=== PATIENT | female | born 1995 | race Hispanic/Latino ===

== ENCOUNTER 2020-02-26 11:55 | Day surgery (SDC) | payer OTHER ==
--- NOTE | 2020-02-26 11:44 | Short Stay Summary ---
Short Stay Documentation Date of service: 02/26/20 Narrative H&P: Pt is a 25 year old female who presents for elective sterilization - History H&P: obtained from office Past Medical History: No medical history Past Surgical History: bowel surgery (as an infant) Social history: - Allergies and Medications Current Medications: Allergies No Known Allergies Allergy (Unverified 02/19/20 09:44) Home Medications Medication Instructions Recorded Confirmed Last Taken Type No Known Home Medications [No 02/19/20 02/19/20 Unknown History Reported Home Medications] Active Medications Acetaminophen (Tylenol) 1,000 mg PO PREOP APARNA Stop: 02/26/20 23:59 Gabapentin (Gabapentin) 600 mg PO PREOP NR Stop: 02/26/20 23:59 Lactated Ringer's (Lactated Ringers) 1,000 mls @ 100 mls/hr IV DIRECT APARNA Stop: 02/26/20 23:59 Midazolam HCl (Versed) 2 mg IV PREOP NR Stop: 02/26/20 23:59 - Physical exam General appearance: no acute distress HEENT: Atraumatic Lungs: Clear to auscultation, Normal air movement Breasts: deferred Heart: Regular rate, Normal S1, Normal S2 Gastrointestinal: normal, normoactive bowel sounds, other (large transverse scar in upper quadrant) Female Genitourinary: normal Extremities: no ischemia - Brief post op/procedure progress note Date of procedure: 02/26/20 Pre-op diagnosis: Undesired fertility Post-op diagnosis: same Procedure: Laparoscopic tubal ligation of the right side, lysis of adhesions Anesthesia: GETA Findings: Extensive adhesions of bowel to all existing structures. In addition, uterus and left tube were completely covered in coating of peritioneum. Left fibria could not be identified. Surgeon: FATIMAH PENNY Estimated blood loss: minimal Pathology: none Condition: stable - Hospital course Hospital course: Good - Disposition Condition at discharge: Stable Disposition: [id number] TO HOME OR SELFCARE Short Stay Discharge Plan Activity: advance as tolerated Weight Bearing Status: Weight Bear as Tolerated Diet: regular Wound: keep clean and dry Follow up with: FATIMAH PENNY MD [Staff Physician] - 14 Days Prescriptions: Ibuprofen [Motrin] 800 mg PO Q8HR PRN #40 tablet PRN Reason: Pain, Mild (1-3) Oxycodone HCl/Acetaminophen [Percocet 7.5/325 mg] 1 each PO Q6HR PRN #20 tablet PRN Reason: Pain
[~2020-02-26 11:55] MED LIST: ACETAMINOPHEN 500 MG TAB PO SCH; GABAPENTIN 300 MG CAP PO NR; LACTATED RINGERS 1,000 ML IV SCH; MIDAZOLAM 2 MG/2 ML INJ IV NR
[2020-02-26] MEDS ORDERED: ceFAZolin/Water 2 GM/20 ML 2 GM/20 ML SYRINGE IV NR (12:00)
[2020-02-26] MEDS ORDERED: BUPIVACAINE/PF (0.25%) 2.5 MG/ML 30 ML VIAL INFILTRATI ONE ×2 (12:08→13:59)
[2020-02-26] MEDS ORDERED: HYDROmorphone 1 MG/1 ML INJ IV PRN (12:46)
--- NOTE | 2020-02-26 12:46 | Anesthesia Consultation ---
Anesthesia Consult and Med Hx Date of service: 02/26/20 - Airway Anesthetic Teeth Evaluation: Good ROM Head & Neck: Adequate Mental/Hyoid Distance: Adequate Mallampati Class: Class II Intubation Access Assessment: Probably Good - Pulmonary Exam CTA: Yes - Cardiac Exam Cardiac Exam: RRR - Pre-Operative Health Status ASA Pre-Surgery Classification: ASA1 Proposed Anesthetic Plan: General - Pulmonary Hx Smoking: No Hx Respiratory Symptoms: No - Cardiovascular System Hx Hypertension: No - Central Nervous System CVA: No - Endocrine Hx Renal Disease: No Hx Liver Disease: No Hx Insulin Dependent Diabetes: No Hx Non-Insulin Dependent Diabetes: No Hx Thyroid Disease: No - Hematic Hx Anemia: No - Other Systems Hx Obesity: No
--- NOTE | 2020-02-26 12:46 | Anesthesia Day of Surgery ---
Anesthesia Day of Surgery - Day of Surgery Patient Examined: Yes Patient H&P Reviewed: Yes Patient is NPO: Yes
[2020-02-26] MEDS ORDERED: propofoL 200 MG/20 ML VIAL IV ONE (12:47)
[2020-02-26] MEDS ORDERED: ROCURONIUM 50 MG/5 ML INJ IV ONE (12:48)
[2020-02-26] MEDS ORDERED: LIDOCAINE MPF (2%) 20 MG/1 ML VIAL 5 ML ONE (12:48)
[2020-02-26] MEDS ORDERED: SODIUM CHLORIDE 0.9% IRR 1,500 ML BOTTLE IR ONE (14:00)
[2020-02-26] MEDS ORDERED: KETOROLAC 30 MG/1 ML INJ ONE (14:34)
[2020-02-26] MEDS ORDERED: GLYCOPYRROLATE 0.4 MG/2 ML INJ ONE (14:34)
[2020-02-26] MEDS ORDERED: NEOSTIGMINE 10MG/10 ML INJ MDV ONE (14:34)
[2020-02-26] MEDS ORDERED: ONDANSETRON 4 MG/2 ML INJ ONE (14:34)
--- NOTE | 2020-02-26 15:04 | Operative Report ---
Operative Report Operative Report: Preoperative diagnosis: Undesired fertility Postoperative diagnosis: Same Procedure: Right-sided tubal ligation with lysis of adhesions Surgeon: Maria Del Carmen Horton Anesthesia: General EBL: Minimal IV fluids: 1000 mL Urine output: 150 mL Findings: Normal size uterus covered in a film of peritoneal adhesions, and n ormal-appearing right tube and ovary with the left adnexa being completely can cover it adhesions and the left fimbriated end of the tube unable to be identified Specimens: None Complications: Extensive pelvic and abdominal adhesions The patient was properly identified as herself. She was then taken to the OR with IV running and in place. She was given general anesthesia without difficulty. She was placed in a dorsal lithotomy position. She was then prepped and draped in normal sterile fashion. Attention was turned to the patient's vagina. Her bladder was drained of clear urine with a red rubber catheter. The speculum was then placed the patient's vagina. The cervix was visualized and grasped with tenaculum. The acorn cannula was then inserted. The surgeon's gloves were changed and attention turned to the patient's abdomen. A small incision was made in the patient's umbilicus incision a 5 mm trocar was placed. The laparoscope confirmed intra-abdominal placement. The abdomen was insufflated with CO2 gas to approximately 25 mmHg. There was a copious amount of filmy adhesions in the initial view of the scope. These were taken down bluntly. The right fallopian tube was identified, the left was completely covered in adhesions and adhered to the anterior abdominal wall. With direct visualization a second trocar was placed through an incision in the left lower quadrant toward the midline. The right tubes was found and followed out to the fimbriated end. The right tube was cauterized at the mid portion of the tube. The left tube cannot be properly identified, however the left ovary was identified and noted to be somewhat adhered to the posterior wall of the uterus. These adhesions were taken down and the ovary was found to be separate from the uterus connected only by the ligaments. The fimbriated end of the tube could not be identified and as a result it was nowhere in the proximity of the ovary. It is believed that the left tube is a nonfunctioning tube. At this point a large peritoneal cyst was identified and some fluid was drained from it it was dionne-colored in appearance. There was excellent hemostasis at the end of this portion of the procedure. At this point the abdomen was deflated. All instruments were then removed from the abdomen. The incisions were then closed with 4-0 Monocryl. The incisions were also injected with quarter percent Marcaine. The patient tolerated the procedure well she was then awakened and taken recovery in stable condition. Sponge needle and instrument counts were correct 2.
[2020-02-26 15:52] VITALS: BP 114/65
--- NOTE | 2020-02-26 16:53 | Post Anesthesia Evaluation ---
- Post Anesthesia Evaluation Patient Participated: Yes Airway Patent: Yes Stable Respiratory Function: Yes Nausea/Vomiting: No Temp > 96.8F: Yes Pain Manageable: Yes Adequeate Hydration: Yes Anesthesia Complications: No
== END 2020-02-26 15:45 | disposition home or self-care (01) ==
LOC: OR 11:55
PROVIDERS: ATTEND Obstetrics & Gynecology
DX: Z30.2 Encounter for sterilization (principal); N73.6 Female pelvic peritoneal adhesions (postinfective); Z79.899 Other long term (current) drug therapy; Z98.890 Other specified postprocedural states
CPT/HCPCS: 58670; 81025; J0690; J1170; J1885; J2250; J2405; J2704; J2710; J7120